=== PATIENT | female | born 1990 ===

== ENCOUNTER → 2017-02-23 | Outpatient (CLI) | payer SELFPAY ==
--- NOTE | 2017-02-23 09:21 | RAD ---
Chest, 2 views, 02/23/2017: History: Cough, chest congestion The heart size and pulmonary vascularity are normal. No pulmonary infiltrates are seen. There is no evidence of pleural fluid. IMPRESSION: No acute cardiopulmonary abnormality is detected.
== END | disposition home or self-care (01) ==
LOC: DXRADRC 08:19
PROVIDERS: ATTEND Physician Assistant Medical
DX: R05 Cough (principal); R09.89 Other specified symptoms and signs involving the circulatory and respiratory systems
CPT/HCPCS: 71020